=== PATIENT | female | born 1970 | race Caucasian/White ===

== ENCOUNTER 2021-06-30 15:15 | Emergency (ER) | payer OTHER ==
[~2021-06-30] VITALS: Ht 152.4 cm; Wt 88.6 kg
[2021-06-30 15:37] VITALS: BP 151/69
== END 2021-06-30 18:52 | disposition left against medical advice (07) ==
LOC: ER 15:15
DX: R07.89 Other chest pain (principal); R51.9 Headache, unspecified
CPT/HCPCS: 93005; 99283

== ENCOUNTER 2022-03-05 03:53 | Emergency (ER) | payer SELFPAY ==
[~2022-03-05] VITALS: Ht 152.4 cm; Wt 115.0 kg
[2022-03-05 04:06] VITALS: BP 141/84
== END 2022-03-05 07:39 | disposition left against medical advice (07) ==
LOC: ER 03:53 → EDUNIT# 03:53 → ER 07:39
DX: Z53.21 Procedure and treatment not carried out due to patient leaving prior to being seen by health care provider (principal)